=== PATIENT | male | born 1945 | race Caucasian/White ===

== ENCOUNTER 2016-06-09 08:39 | Outpatient (CLI) | payer MEDICARE, OTHER ==
[2016-06-09 12:55] LABS: ALT (SGPT) 18 U/L (0-55); AST (SGOT) 20 U/L (5-34); Alkaline Phosphatase 114 U/L (40-150); Anion Gap 12 mmol/L (10-20); BUN (Urea Nitrogen) 13 mg/dL (8.4-25.7); Bilirubin, Direct 0.2 mg/dL (0.1-0.3); Bilirubin, Total 0.5 mg/dL (0.2-1.2); Calc. Creatinine Clearance 0 mL/min (70-130); Calcium 8.9 mg/dL (7.8-10.44); Carbon Dioxide 26 mmol/L (23-31); Chloride 109 mmol/L (98-107); Estimated GFR-MDRD 86; LDL Cholesterol, Calculated 103 mg/dL; Protein, Total 6.5 g/dL (5.8-8.1)
[2016-06-09 12:56] LABS: #Basophils 0.1 thou/uL (0.0-0.2); #Eosinphils 0.2 thou/uL (0.0-0.7); #Lymphocytes 1.6 thou/uL (1.20-3.40); #Monocytes 0.6 thou/uL (0.11-0.59); #Neutrophils 4.1 thou/uL (1.40-6.50); %Basophils 1.1 % (0.0-1.0); %Eosinophils 2.9 % (0.0-10.0); %Monocytes 8.7 % (0.0-10.0); Hematocrit 42.6 % (42.0-52.0); Mean Platelet Volume 7.6 fL (7.4-10.4); Red Blood Cell (RBC) Count 4.72 mill/uL (4.70-6.10); White Blood Cell (WBC) Count 6.5 thou/uL (4.8-10.8)
[2016-06-09 13:44] LABS: Hemoglobin A1c 5.7 % (4.0-6.0)
== END 2016-06-09 08:40 ==
LOC: NAVSJIPCSP 08:39
PROVIDERS: ATTEND Family Medicine
DX: Z12.5 Encounter for screening for malignant neoplasm of prostate (principal); Z79.899 Other long term (current) drug therapy; I10 Essential (primary) hypertension; E78.5 Hyperlipidemia, unspecified; E03.9 Hypothyroidism, unspecified
CPT/HCPCS: 36415; 80048; 80061; 80076; 83036; 84443; 85025; G0103

== ENCOUNTER 2016-11-26 09:09 | Outpatient (CLI) | payer MEDICARE, OTHER ==
[2016-11-26 14:12] LABS: #Basophils 0.1 thou/uL (0.0-0.2); #Eosinphils 0.2 thou/uL (0.0-0.7); #Lymphocytes 1.6 thou/uL (1.20-3.40); #Monocytes 0.6 thou/uL (0.11-0.59); #Neutrophils 4.1 thou/uL (1.40-6.50); %Basophils 1.1 % (0.0-1.0); %Eosinophils 3.4 % (0.0-10.0); %Lymphocytes 24.3 % (21.0-51.0); %Monocytes 8.9 % (0.0-10.0); %Neutrophils 62.3 % (42.0-75.0); Hemoglobin 13.4 g/dL (14.0-18.0); Mean Corpuscular HGB CONC 32.7 g/dL (32.0-36.0); Mean Corpuscular Hemoglobin 29.1 pg (27.0-31.0); Mean Corpuscular Volume 88.9 fl (80.0-94.0); Mean Platelet Volume 8.1 fL (7.4-10.4); Platelet Count 189 thou/uL (130-400); RBC Distribution Width 12.8 % (11.5-14.5); White Blood Cell (WBC) Count 6.6 thou/uL (4.8-10.8)
[2016-11-26 17:50] LABS: ALT (SGPT) 15 U/L (8-55); AST (SGOT) 17 U/L (5-34); Albumin 3.8 g/dL (3.4-4.8); Alkaline Phosphatase 91 U/L (40-150); Anion Gap 14 mmol/L (10-20); BUN (Urea Nitrogen) 11 mg/dL (8.4-25.7); Bilirubin, Direct 0.2 mg/dL (0.1-0.3); Bilirubin, Total 0.6 mg/dL (0.2-1.2); Calc. Creatinine Clearance 0 mL/min (70-130); Calcium 8.5 mg/dL (7.8-10.44); Carbon Dioxide 24 mmol/L (23-31); Cardiac Risk 3.4 (Less than 4.5); Chloride 105 mmol/L (98-107); Cholesterol 153 mg/dl (< 200 Desired); Estimated GFR-MDRD Greater than 90; Glucose 108 mg/dL (83-110); HDL Cholesterol 45 mg/dL (>60 Neg Risk); LDL Cholesterol, Calculated 93 mg/dL; Potassium 4.2 mmol/L (3.5-5.1); Protein, Total 6.2 g/dL (5.8-8.1); Sodium 139 mmol/L (136-145); Triglycerides 74 mg/dL (Less than 150)
[2016-11-26 18:32] LABS: Hemoglobin A1c 5.8 % (4.0-6.0)
== END 2016-11-26 09:10 | disposition home or self-care (01) ==
LOC: NAVSJIPCSP 09:09
PROVIDERS: ATTEND Family Medicine
DX: Z12.5 Encounter for screening for malignant neoplasm of prostate (principal); E78.5 Hyperlipidemia, unspecified; E03.9 Hypothyroidism, unspecified; I10 Essential (primary) hypertension; Z79.899 Other long term (current) drug therapy
CPT/HCPCS: 36415; 80048; 80061; 80076; 83036; 84443; 85025

== ENCOUNTER 2019-05-30 11:55 | Outpatient (CLI) | payer MEDICARE, OTHER ==
--- NOTE | 2019-05-30 12:17 | RAD ---
XR Lumbar Spine 2 Or 3 View HISTORY: Injury, low back pain FINDINGS: There are multilevel degenerative changes. Minimal retrolistheses of L2 over L3 is seen. No fracture is identified.
--- NOTE | 2019-05-30 12:19 | RAD ---
XR Sacrum and Coccyx STANDARD HISTORY: Injury, low back pain FINDINGS: There is suggestion of a mildly displaced fracture involving the inferior segment of the coccyx.
== END 2019-05-30 11:56 | disposition home or self-care (01) ==
LOC: NAV RAD 11:55
PROVIDERS: ATTEND Family Medicine
DX: M54.5 Low back pain (principal)
CPT/HCPCS: 72100; 72220